=== PATIENT | female | born 1985 | race Caucasian/White ===

== ENCOUNTER → 2017-06-09 | Outpatient (CLI) | payer BC ==
[~2017-06-09] MED LIST: Advil200 M1 PO; Mirena1 EACH VG; Multiple Vitam1 EAC1 PO; Nasal & Sinus D30 MG PO; PREN-16 PO
== END | disposition home or self-care (01) ==
LOC: LAB SHORT 11:04 → LAB 11:04
PROVIDERS: Obstetrics & Gynecology
DX: Z01.419 Encounter for gynecological examination (general) (routine) without abnormal findings (principal)
CPT/HCPCS: 87624; G0123

== ENCOUNTER 2022-11-16 08:05 | Emergency (ER) | payer OTHER, BC ==
[~2022-11-16] VITALS: Ht 170.2 cm; Wt 57.6 kg
[~2022-11-16 08:05] MED LIST changes: +VITAMIN D
[2022-11-16 08:16] VITALS: BP 107/69
[2022-11-17 10:09] LABS: HCV ANTIBODY Non Reactive (Non Reactive); HIV AB/P24 AG SCREEN Non Reactive (Non Reactive)
== END 2022-11-16 08:42 | disposition home or self-care (01) ==
LOC: ER 08:05
PROVIDERS: Physician Assistant
DX: S61.432A Puncture wound without foreign body of left hand, initial encounter (principal); W46.0XXA Contact with hypodermic needle, initial encounter; Z23 Encounter for immunization; Y99.0 Civilian activity done for income or pay
CPT/HCPCS: 86317; 86703; 86803; 87340; 87389; 90471; 90715; 99282-25